=== PATIENT | female | born 2000 | race Caucasian/White ===

== ENCOUNTER 2022-09-21 16:53 | Emergency (ER) | payer OTHER, SELFPAY ==
[2022-09-21] VITALS (33 sets, daily range): BP systolic 115–138; BP diastolic 75–88; PULSE 71–99; RESP 11–28; TEMP 36.6; O2SAT 99–100
--- NOTE | ~2022-09-21 | CT_ITS ---
EXAMINATION: CT brain wo con DATE: 09/21/2022 18:48 INDICATION: seizure . TECHNIQUE: Computed tomography (CT) of the head was performed without intravenous contrast. The mA wa s adjusted according to patient size. Iterative reconstruction technique was employed. The dose-lengt h product was 605.33 mGy-cm. COMPARISON: None. FINDINGS: No acute intracranial hemorrhage or extra-axial fluid collection. No hydrocephalus, mass, or herniation. No acute ischemic infarct. Unremarkable dural venous sinus attenuation. No acute osseous abnormality. Left maxillary retention cyst or polyp, the remaining aerated spaces are clear. IMPRESSION: No acute intracranial process. Reviewed, dictated and finalized at location K. DENT REPORT CLERK
--- NOTE | 2022-09-21 17:50 | PC.NURSE ---
pt up to desk asking for iv to be removed. states she needs to get back on campus before shuttle stops. pt ambulatory into triage room and iv removed. care coordination contacted for bus schedule
--- NOTE | 2022-09-21 18:36 | ED.GENADULT ---
HPI - General Adult General Chief complaint: Seizure Stated complaint: pseudoseisures Time Seen by Provider: 09/21/22 18:29 History of Present Illness HPI narrative: Patient is a 22-year-old female with a history of anxiety, depression, diagnosed with pseudoseizures, here for evaluation of seizure-like activity. Patient states that over the past week she has had several episodes consistent with prior pseudoseizures. Today, she states that she had 6 episodes of uncontrollable body shaking where she loses consciousness, lasting for several seconds before resolving without intervention. She did hit her head on the tile floor. She has seen a neurologist in [place] for this, takes Lamictal daily, and was told that she no longer had to follow-up with neurology because it is a psychiatric issue. She has seen her psychiatrist numerous times and has underwent numerous medication adjustments without success or resolution of these episodes. she denies headaches, visual changes, fevers or chills. Denies increased stressors, suicidal ideation or homicidal ideation. Denies illicit drug use. Related Data Allergies Allergy/AdvReac Type Severity Reaction Status Date / Time diphenhydramine Allergy Other Verified 09/21/22 19:50 [From Benadryl] ibuprofen Allergy Vomiting Verified 09/21/22 19:50 Review of Systems Review of Systems: Gen: Denies fevers or chills Eyes: Denies eye pain or visual change ENT: Denies congestion Respiratory: Denies shortness of breath or cough CV: Denies chest pain or palpitations GI: Denies abdominal pain nausea, emesis or diarrhea : denies burning, urgency, frequency or hematuria Musculoskeletal: Denies back pain or muscle pain Neuro: Reports pseudoseizures Skin: Denies rash Except as documented, all other systems reviewed and negative Exam Narrative: APPEARANCE: Well appearing, no pain in distress, well-nourished. Head: Normocephalic and atraumatic. EYES: PERRLA/EOMI, conjunctivae clear NOSE: No nasal drainage EARS: External ear normal in appearance THROAT: Oropharynx is clear. Mucous membranes are moist. NECK: Supple. No adenopathy, no masses. RESPIRATORY: Airway patent, respirations nonlabored. Clear to auscultation bilaterally, no rales, rhonchi, wheezing. CARDIOVASCULAR: Regular rate and rhythm without murmurs, rubs, or gallops. ABDOMINAL: Normoactive bowel sounds. Soft, nontender, nondistended. No rebound tenderness or guarding. MUSCULOSKELETAL: Extremities are warm and well-perfused. Moves all extremities well. No edema. NEURO: Normal speech. No focal neurologic deficits. SKIN: Skin is warm and dry. No rashes. PSYCHIATRIC: Normal affect/mood. Course Vital Signs Vital signs: Vital Signs Temperature 97.9 F 09/21/22 17:00 Pulse Rate 90 09/21/22 17:00 Respiratory Rate 16 09/21/22 17:00 Blood Pressure 127/78 09/21/22 17:00 Pulse Oximetry 99 09/21/22 17:00 Oxygen Delivery Room Air 09/21/22 17:00 Temperature 97.9 F 09/21/22 17:00 Pulse Rate 91 09/22/22 00:48 Respiratory Rate 17 09/22/22 00:48 Blood Pressure 125/90 09/22/22 00:30 Pulse Oximetry 97 09/22/22 00:33 Oxygen Delivery Room Air 09/21/22 17:00 Medical Decision Making MDM Narrative Medical decision making narrative: 22-year-old female with a history of pseudoseizures here for evaluation of seizure-like activity today that she likens to previous episodes of pseudoseizures. She has been compliant with her Lamictal but has not seen her neurologist in a year. She has had EEGs, MRIs, numerous tests that have been unrevealing. Vital signs are normal, she did hit her head but has no significant signs of head trauma/tongue laceration on exam. Head CT is normal. Lactic is negative. She does have numerous electrolyte disturbances including hypokalemia, hypocalcemia, hypoalbuminemia. EKG with T wave flattening. She denies GI losses and has had normal p.o. intake. her lytes were repleted in the ED and verito kidd
[2022-09-21 19:19] LABS: Hematocrit 38.1 % (37.0-47.0); Immature Granulocyte Absolute 0.02 K/mm3 (0.00-0.031); Immature Granulocyte Percent A 0.4 % (0-0.5); Lymphocytes Absolute Auto 1.65 K/mm3 (0.9-3.2); Lymphocytes Percent Auto 36.7 % (18.3-44.2); Mean Corpuscular HGB Conc 34.1 g/dl (32-36); Mean Corpuscular Hemoglobin 31.6 pg (26-34); Mean Corpuscular Volume 92.7 fl (80-100); Mean Platelet Volume 9.1 fl (7.4-10.4); Monocytes Absolute Auto 0.3 K/mm3 (0.1-0.6); Monocytes Percent Auto 6.2 % (2.6-8.5); Neutrophils Absolute Auto 2.6 K/mm3 (1.3-6.7); Neutrophils Percent Auto 56.7 % (45.5-73.1); Platelet Count Result 234 k/mm3 (150-375); Red Blood Count 4.11 M/mm3 (4.2-5.4); Red Cell Distribution Width 12.3 % (11.5-14.5); White Blood Count 4.5 K/mm3 (4.5-10.0)
[2022-09-21 19:35] LABS: Alanine Aminotransferase 17 U/L (6-35); Albumin Level 2.6 g/dL (3.5-5.1); Alkaline Phosphatase 60 U/L (38-126); Anion Gap 1 mmol/L (8-16); Aspartate Amino Transferase 17 U/L (14-36); Bilirubin,Total 0.4 mg/dL (0.2-1.3); Blood Urea Nitrogen 4 mg/dL (7-17); Calcium 5.9 mg/dL (8.4-10.2); Carbon Dioxide 22 mmol/L (22-30); Chloride 115 mmol/L (98-107); Estimated CRCL calculation 149 ml/min; Estimated Glomerular Filt Rate > 60; Glucose 67 mg/dL (65-110); Magnesium 1.5 mg/dL (1.6-2.3); Potassium 2.4 mmol/L (3.4-5.0); Sodium 138 mmol/L (137-145)
--- NOTE | 2022-09-21 19:38 | ECG_ITS ---
Measurements Intervals [place] Rate: 78 P: 47 SD: 194 QRS: 8 QRSD: 117 T: 33 QT: 394 QTc: 451 Interpretive Statements SINUS RHYTHM INTRAVENTRICULAR CONDUCTION DELAY DELAYED PRECORDIAL R/S TRANSITION BORDERLINE T WAVE ABNORMALITY- ANTERIOR LEADS BASELINE ARTIFACT- I, II, AVR, AVL, AVF, V3-V4 BORDERLINE ECG NO PREVIOUS ECG AVAILABLE FOR COMPARISON Electronically Signed On 09-22-2022 7:46:13 JOY LOADER by Don Leo D.O.
[2022-09-21] MEDS: Please add drug allergy info to patient profile. 1 EACH XX (19:51)
[2022-09-21] MEDS: POTASSIUM CHLORIDE 20 MEQ TABLET 40 MEQ PO (19:51)
[2022-09-21] MEDS: POTASSIUM CHLORIDE INJ 40 MEQ in SODIUM CHLORIDE 0.9% IV 500 ML 130 MEQ IVPB (20:09)
[2022-09-21] MEDS: SODIUM CHLORIDE 0.9% IV 1,000 ML 999 ML IV CONT (20:09)
[2022-09-21 20:20] LABS: Lithium 0.3 mmol/L (0.6-1.2)
[2022-09-21 20:40] LABS: Phosphorus 3.8 mg/dL (2.5-4.5)
[2022-09-21] MEDS: CALCIUM CARBONATE (TUMS) 500 MG (200 MG ELEMENTAL) 400 MG PO (22:15)
[2022-09-22 00:03] VITALS: PULSE 84; RESP 20; O2SAT 100
[2022-09-22 00:20] VITALS: PULSE 80; RESP 17; O2SAT 98
[2022-09-22 00:30] VITALS: BP 125/90; PULSE 82; RESP 18; O2SAT 98
[2022-09-22 00:33] VITALS: PULSE 84; RESP 17; O2SAT 97
[2022-09-22 00:42] LABS: Anion Gap 2 mmol/L (8-16); Blood Urea Nitrogen 8 mg/dL (7-17); Calcium 8.5 mg/dL (8.4-10.2); Carbon Dioxide 29 mmol/L (22-30); Chloride 111 mmol/L (98-107); Estimated CRCL calculation 110 ml/min; Estimated Glomerular Filt Rate > 60; Glucose 97 mg/dL (65-110); Potassium 4.1 mmol/L (3.4-5.0); Sodium 142 mmol/L (137-145)
[2022-09-22 00:48] VITALS: PULSE 91; RESP 17
[2022-09-29 16:49] LABS: Parathyroid Hormone Related Pr 10 pg/mL (11-20)
== END 2022-09-22 01:08 | disposition home or self-care (01) ==
PROVIDERS: Emergency Provider Physician Assistant
DX: R56.9 Unspecified convulsions (principal); I45.9 Conduction disorder, unspecified; R94.31 Abnormal electrocardiogram [ECG] [EKG]
CPT/HCPCS: 36415; 70450; 80048; 80053; 80178; 83519; 83605; 83735; 84100; 85025; 93005; 96365; 96366; 99284; A9270; J3480; J7030; J7040

== ENCOUNTER 2022-11-17 14:11 | Emergency (ER) | payer MEDICAID, SELFPAY ==
[2022-11-17 14:16] VITALS: BP 136/69; PULSE 89; RESP 20; TEMP 36.7; O2SAT 98
[2022-11-17 14:57] LABS: Basophils Percent Auto 0.2 % (0.2-1.2); Eosinophils Absolute Auto 0.1 K/mm3 (0-0.3); Hematocrit 42.3 % (37.0-47.0); Hemoglobin 14.5 g/dL (12.0-15.0); Immature Granulocyte Absolute 0.01 K/mm3 (0.00-0.031); Immature Granulocyte Percent A 0.2 % (0-0.5); Lymphocytes Percent Auto 35.5 % (18.3-44.2); Mean Corpuscular HGB Conc 34.3 g/dl (32-36); Mean Corpuscular Hemoglobin 30.9 pg (26-34); Mean Corpuscular Volume 90.2 fl (80-100); Mean Platelet Volume 9.6 fl (7.4-10.4); Monocytes Absolute Auto 0.3 K/mm3 (0.1-0.6); Monocytes Percent Auto 6.3 % (2.6-8.5); Neutrophils Absolute Auto 2.9 K/mm3 (1.3-6.7); Neutrophils Percent Auto 56.8 % (45.5-73.1); Platelet Count Result 278 k/mm3 (150-375); Red Blood Count 4.69 M/mm3 (4.2-5.4); Red Cell Distribution Width 12.3 % (11.5-14.5); White Blood Count 5.1 K/mm3 (4.5-10.0)
--- NOTE | 2022-11-17 14:57 | PC.NURSE ---
Pt states she was not going to wait any longer.
[2022-11-17 15:11] LABS: Alanine Aminotransferase 25 U/L (6-35); Albumin Level 4.6 g/dL (3.5-5.1); Alkaline Phosphatase 78 U/L (38-126); Anion Gap 5 mmol/L (8-16); Aspartate Amino Transferase 29 U/L (14-36); Bilirubin,Total 0.7 mg/dL (0.2-1.3); Blood Urea Nitrogen 10 mg/dL (7-17); Carbon Dioxide 31 mmol/L (22-30); Chloride 106 mmol/L (98-107); Estimated CRCL calculation 112 ml/min; Estimated Glomerular Filt Rate > 60; Glucose 91 mg/dL (65-110); Lipase 34 U/L (23-300); Potassium 4.8 mmol/L (3.4-5.0); Sodium 142 mmol/L (137-145)
== END 2022-11-17 15:00 | disposition left against medical advice (07) ==
PROVIDERS: Emergency Provider Emergency Medicine
DX: R11.2 Nausea with vomiting, unspecified (principal); R19.7 Diarrhea, unspecified
CPT/HCPCS: 36415; 80053; 83690; 85025; 99199

== ENCOUNTER 2023-01-08 13:30 | Emergency (ER) | payer OTHER, SELFPAY ==
[2023-01-08] VITALS (19 sets, daily range): BP systolic 112–141; BP diastolic 70–89; PULSE 67–92; RESP 12–20; TEMP 36.8; O2SAT 96–100
--- NOTE | ~2023-01-08 | CT_ITS ---
EXAMINATION: CT brain wo con DATE: 01/08/2023 14:49 INDICATION: Seizure. TECHNIQUE: Computed tomography (CT) of the head was performed without intravenous contrast. The mA wa s adjusted according to patient size. Iterative reconstruction technique was employed. The dose-lengt h product was 605.33 mGy-cm. COMPARISON: Head CT 09/21/2022 FINDINGS: There is no intracranial hemorrhage, acute infarction, or abnormal intracranial mass lesion . The ventricles are normal in size. There is mild mucosal thickening in left maxillary sinus. The ma stoid air cells are normal. The orbits are normal. IMPRESSION: 1. Normal brain. Reviewed, dictated and finalized at location E. IMPRESSION: 1. Normal brain.
--- NOTE | ~2023-01-08 | XR_ITS ---
EXAMINATION: XR chest 1V 01/08/2023 14:54 INDICATION: Syncope. History of seizure. PROCEDURE: AP view of the chest COMPARISON: No prior studies for comparison. FINDINGS: The lungs are clear. The cardiomediastinal silhouette is within normal limits. There are no pleural effusions. There is no pneumothorax suspected. IMPRESSION: 1: NO ACUTE CARDIOPULMONARY DISEASE. Reviewed, dictated and finalized at location B.
--- NOTE | 2023-01-08 14:14 | ECG_ITS ---
Measurements Intervals [place] Rate: 77 P: 43 GA: 196 QRS: -10 QRSD: 120 T: 8 QT: 390 QTc: 442 Interpretive Statements SINUS RHYTHM INTRAVENTRICULAR CONDUCTION DELAY BORDERLINE T WAVE ABNORMALITY- ANT/INF LEADS BORDERLINE ECG COMPARED TO ECG 12/23/2022 12:27:44 INTRAVENTRICULAR CONDUCTION DELAY NOW PRESENT Electronically Signed On 01-08-2023 15:26:02 CDT by Don Leo D.O.
[2023-01-08] MEDS: SODIUM CHLORIDE 0.9% IV 1,000 ML 999 ML IV CONT (14:30)
[2023-01-08 14:54] LABS: Appearance Urine Cloudy (Clear); Bacteria Urine 1+ /hpf; Bilirubin Urine Negative (Negative); Blood Urine Negative (Negative); Color Urine Yellow (Yellow); Glucose Urine UA Negative (Negative); Ketones Urine Negative (Negative); Leukocyte Esterase Ur Trace LEU/UL (Negative); Nitrate Urine Negative (Negative); Protein Urine Negative (Negative); RBC Urine 0-2 /hpf (0-2); Squamous Epithelial Cell Urine Few /hpf (Few); Urobilinogen Urine 0.2 mg/dL (<2.0); WBC Urine 0-5 /hpf
[2023-01-08 14:56] LABS: Add Urine Microscopic? YES
[2023-01-08 15:08] LABS: Amphetamine Screen Urine Negative (Negative); Barbiturate Screen Urine Negative (Negative); Benzodiazepines Screen Urine Negative (Negative); Cannabinoid Screen Urine Negative (Negative); Cocaine Screen Urine Negative (Negative); Methadone Screen Urine Negative (Negative); Opiate Screen Urine Negative (Negative); Phencyclidine Screen Urine Negative (Negative)
--- NOTE | 2023-01-08 15:09 | ED.SEIZURE ---
HPI - Seizure General Chief Complaint: Seizure Stated Complaint: seizure Time Seen by Provider: 01/08/23 13:54 Source: patient, RN notes reviewed and old records reviewed Mode of arrival: ambulatory Limitations: no limitations History of Present Illness HPI Narrative: This is a 22 year old female with history of Bipolar disorder and psuedoseizure who presents for evaluation of seizure activity. Patient states she was at work and she had seizure like activity. She denies tongue biting or urinary incontinence. She has history of similar episodes and she has been diagnosed as pseudoseizure as the cause of the these episodes. She reports feeling dizziness and heart pounding prior to her episodes. Patient reports having EEG 2 years ago and it was negative. She has need seen a neurologist in 1 year because she was not have epileptic seizures. She states her PCP ordered MRI brain 2 weeks ago and it showed brain injury . She has been referred to neurologist and her appointment is on Wednesday. she denies headache, nausea, vomiting or focal weakness. She states she stopped taking her lithium, lamictal and seroquel 2 months ago without her doctor's knowledge. Seizure History: Yes Related Data Allergies Allergy/AdvReac Type Severity Reaction Status Date / Time diphenhydramine Allergy Other Verified 12/23/22 12:22 [From Benadryl] ibuprofen Allergy Vomiting Verified 12/23/22 12:22 Review of Systems Constitutional: Constitutional: Denies weakness Cardiovascular: Cardiovascular: Denies syncope, Reports rapid heart rate, Denies irregular heart rhythm, Denies leg edema and Denies dyspnea Respiratory: Respiratory: Denies chest congestion, Denies hemoptysis, Denies excessive phlegm production and Denies dyspnea Gastrointestinal: Gastrointestinal: Denies abdominal pain, Denies hematochezia, Denies diarrhea and Denies vomiting Genitourinary: Genitourinary: Denies hematuria and Denies dysuria Musculoskeletal: Musculoskeletal: Denies joint swelling, Denies loss of height and Denies muscle weakness Neurologic: Reports dizziness, Denies syncope, Denies headache(s), Denies focal weakness and Denies weakness PMFSH Past Medical History Medical History (Updated 01/08/23 @ 16:59 by Ligia Narayan MD) Psychiatric pseudoseizure Surgical History Surgical History (Updated 12/23/22 @ 12:56 by Roxy Santiago MD) No pertinent past surgical history Social History Social History (Updated 12/23/22 @ 12:57 by Roxy Santiago MD) Smoking status: Never smoker Alcohol intake: never Substance use: never Living arrangements: dorm student housing Occupation/Education: student Gender identity (if verbalized by the patient): Female Exam Narrative: GENERAL: Well-appearing, well-nourished, and in no acute distress. HEAD: Normocephalic, atraumatic EYES: PERRLA and EOMI, conjunctiva clear without discharge EARS: TM's clear bilaterally without erythema or dullness NOSE: Nares clear, no rhinorrhea or epistaxis THROAT:Mucous membranes moist, Oropharynx normal without erythema, exudate, peritonsillar swelling or fluctuance NECK: Supple, without lymphadenopathy or mass RESPIRATORY: No respiratory distress, Airway patent, Respirations non-labored, Clear to auscultation without rales, rhonchi or wheeze HEART: Regular rate and rhythm. No murmur heard. Normal peripheral pulses. ABDOMEN: Soft, nontender, nondistended, normal active bowel sounds. No masses. No rebound or guarding, No organomegaly. EXTREMITIES: No edema, normal strength with full range of motion. SKIN: Warm, dry, normal color without rash NEURO: Alert and oriented x3. CN 2-12 grossly intact. No focal deficits. PSYCH: Normal mood and affect. Course Reevaluation(s) Reevaluation #1: Patient has unremarkable evaluation. SHe has been ambulatory without dizziness. No report of incontinence, tongue biting or postictal state to suggest epileptic seizure. She has
[2023-01-08 15:43] LABS: Alanine Aminotransferase 21 U/L (6-35); Albumin Level 4.2 g/dL (3.5-5.1); Alkaline Phosphatase 100 U/L (38-126); Anion Gap 6 mmol/L (8-16); Aspartate Amino Transferase 25 U/L (14-36); Bilirubin,Total 0.9 mg/dL (0.2-1.3); Blood Urea Nitrogen 13 mg/dL (7-17); Calcium 8.9 mg/dL (8.4-10.2); Carbon Dioxide 28 mmol/L (22-30); Chloride 104 mmol/L (98-107); Estimated CRCL calculation 87 ml/min; Estimated Glomerular Filt Rate > 60; Glucose 80 mg/dL (65-110); Potassium 3.9 mmol/L (3.4-5.0); Sodium 138 mmol/L (137-145)
[2023-01-08 15:54] LABS: Troponin I < 0.012 ng/mL (0.000-0.034)
[2023-01-08 16:07] LABS: Eosinophils Percent Auto 0.6 % (0-4.4); Hematocrit 36.5 % (37.0-47.0); Hemoglobin 12.8 g/dL (12.0-15.0); Immature Granulocyte Absolute 0.01 K/mm3 (0.00-0.031); Immature Granulocyte Percent A 0.2 % (0-0.5); Lymphocytes Absolute Auto 1.63 K/mm3 (0.9-3.2); Lymphocytes Percent Auto 30.7 % (18.3-44.2); Mean Corpuscular HGB Conc 35.1 g/dl (32-36); Mean Corpuscular Hemoglobin 30.5 pg (26-34); Mean Corpuscular Volume 87.1 fl (80-100); Mean Platelet Volume 9.5 fl (7.4-10.4); Monocytes Absolute Auto 0.4 K/mm3 (0.1-0.6); Neutrophils Absolute Auto 3.3 K/mm3 (1.3-6.7); Neutrophils Percent Auto 61.5 % (45.5-73.1); Platelet Count Result 224 k/mm3 (150-375); Red Blood Count 4.19 M/mm3 (4.2-5.4); White Blood Count 5.3 K/mm3 (4.5-10.0)
== END 2023-01-08 17:09 | disposition home or self-care (01) ==
PROVIDERS: Emergency Provider General Practice
DX: R56.9 Unspecified convulsions (principal); F31.9 Bipolar disorder, unspecified; T42.6X6A Underdosing of other antiepileptic and sedative-hypnotic drugs, initial encounter; T43.596A Underdosing of other antipsychotics and neuroleptics, initial encounter; Z91.138 Patient's unintentional underdosing of medication regimen for other reason; R94.31 Abnormal electrocardiogram [ECG] [EKG]; I45.9 Conduction disorder, unspecified
CPT/HCPCS: 36415; 70450; 71045; 80053; 80307; 81001; 81025; 83735; 84484; 85025; 93005; 96360; 99284; J7030

== ENCOUNTER 2023-02-20 13:35 | Emergency (ER) | payer OTHER, SELFPAY ==
[2023-02-20] VITALS (20 sets, daily range): BP systolic 115–148; BP diastolic 72–86; PULSE 75–98; RESP 14–22; TEMP 36.7; O2SAT 97–100
--- NOTE | 2023-02-20 14:15 | ED.SEIZURE ---
HPI - Seizure General Chief Complaint: Seizure Stated Complaint: SEIZURES Time Seen by Provider: 02/20/23 13:49 History of Present Illness HPI Narrative: 23-year-old female presents to the emergency room today by EMS after having seizure activity while at work. She says that she had a feeling of blurry vision and dizziness prior to the seizure. She does not recall the seizure itself. She says that she had 2 seizures [id number]. Her employer called EMS at that point. She has seen a neurologist in the past but not for more than a year. She is diagnosed with pseudoseizures. Her psychiatrist stopped her seizure medication in October because she has pseudoseizures rather than epileptic seizures. They are trying to do a medication wash for her right now. Patient is starting to feel more back to her baseline but says she feels tired. No headache or dizziness right now. Denies any pain symptoms. No recent illness, fever or chills. Seizure History: Yes Related Data Allergies Allergy/AdvReac Type Severity Reaction Status Date / Time diphenhydramine Allergy Other Verified 02/20/23 13:48 [From Benadryl] ibuprofen Allergy Vomiting Verified 02/20/23 13:48 Review of Systems Review of Systems: CONSTITUTIONAL: Denies fever, chills, or sweats. EYES: as per HPI ENT: Denies rhinorrhea, congestion, sore throat, or otalgia. CARDIOVASCULAR: Denies chest pain, palpitations, or edema. RESPIRATORY: Denies cough or dyspnea. GASTROINTESTINAL: Denies abdominal pain, nausea, vomiting, or diarrhea. GENITOURINARY: Denies dysuria or hematuria. SKIN: Denies rash or itching. MUSCULOSKELETAL: Denies back pain, joint pain, or myalgia. NEUROLOGIC: as per HPI PSYCHIATRIC: Denies anxiety or depression. [facility] Past Medical History Medical History Psychiatric pseudoseizure Surgical History Surgical History No pertinent past surgical history Social History Social History Smoking status: Never smoker Alcohol intake: never Substance use: never Living arrangements: dorm student housing Occupation/Education: student Gender identity (if verbalized by the patient): Female Exam Narrative: GENERAL: Well-appearing, well-nourished, and in no acute distress. HEAD: Normocephalic, atraumatic. EYES: PERRL and EOMI. NECK: Supple. No adenopathy or masses. CHEST: Clear to auscultation. No respiratory distress. No wheezes rales or rhonchi HEART: Regular rate and rhythm. No murmur heard. Normal peripheral pulses. ABDOMEN: Soft, nontender, nondistended, normal active bowel sounds. EXTREMITIES: Normal range of motion. No edema. SKIN: Warm, dry, no rash. NEURO: No focal deficits. Alert and oriented x3. PSYCH: Normal mood and affect. Course Vital Signs Vital signs: Vital Signs Temperature 36.7 C 02/20/23 13:32 Pulse Rate 98 02/20/23 13:32 Respiratory Rate 17 02/20/23 13:32 Blood Pressure 132/80 02/20/23 13:32 Pulse Oximetry 99 02/20/23 13:32 Oxygen Delivery Room Air 02/20/23 13:32 Temperature 36.7 C 02/20/23 13:32 Pulse Rate 84 02/20/23 16:16 Respiratory Rate 17 02/20/23 16:16 Blood Pressure 125/78 02/20/23 16:16 Pulse Oximetry 98 02/20/23 16:16 Oxygen Delivery Room Air 02/20/23 13:45 MDM - Seizure Lab Data Attestation: I reviewed the patient's lab results. 02/20/23 14:28 02/20/23 15:57 Labs: Lab Results 02/20/23 02/20/23 02/20/23 Range/Units 14:28 14:40 15:57 WBC 5.5 (4.5-10.0) K/mm3 RBC 4.22 (4.2-5.4) M/mm3 Hgb 13.0 (12.0-15.0) g/dL Hct 37.3 (37.0-47.0) % MCV 88.4 (80-100) fl MCH 30.8 (26-34) pg MCHC 34.9 (32-36) g/dl RDW 12.8 (11.5-14.5) % Plt Count 238 (150-375) k/mm3 MPV 10.0 (7.4-10.4) fl Immature Gran % (
[2023-02-20] MEDS: SODIUM CHLORIDE 0.9% IV 1,000 ML 999 ML IV CONT (14:29)
[2023-02-20 14:35] LABS: Basophils Percent Auto 0.2 % (0.2-1.2); Eosinophils Absolute Auto 0.1 K/mm3 (0-0.3); Eosinophils Percent Auto 1.3 % (0-4.4); Hematocrit 37.3 % (37.0-47.0); Immature Granulocyte Absolute 0.01 K/mm3 (0.00-0.031); Immature Granulocyte Percent A 0.2 % (0-0.5); Lymphocytes Percent Auto 32.5 % (18.3-44.2); Mean Corpuscular HGB Conc 34.9 g/dl (32-36); Mean Corpuscular Hemoglobin 30.8 pg (26-34); Mean Corpuscular Volume 88.4 fl (80-100); Monocytes Absolute Auto 0.4 K/mm3 (0.1-0.6); Monocytes Percent Auto 6.7 % (2.6-8.5); Neutrophils Absolute Auto 3.3 K/mm3 (1.3-6.7); Neutrophils Percent Auto 59.1 % (45.5-73.1); Platelet Count Result 238 k/mm3 (150-375); Red Blood Count 4.22 M/mm3 (4.2-5.4); Red Cell Distribution Width 12.8 % (11.5-14.5); White Blood Count 5.5 K/mm3 (4.5-10.0)
[2023-02-20 14:48] LABS: Appearance Urine Clear (Clear); Bacteria Urine None Seen /hpf; Bilirubin Urine Negative (Negative); Color Urine Yellow (Yellow); Glucose Urine UA Negative (Negative); Ketones Urine Negative (Negative); Leukocyte Esterase Ur Trace LEU/UL (Negative); Nitrate Urine Negative (Negative); Non Pathogenic Casts 0-2; Protein Urine Negative (Negative); RBC Urine 0-2 /hpf (0-2); Specific Grav Ur 1.009 (1.001-1.035); Squamous Epithelial Cell Urine None seen /hpf (Few); Urobilinogen Urine 0.2 mg/dL (<2.0); WBC Urine 0-5 /hpf; pH Urine 5.5 (5.0-9.0)
[2023-02-20 15:12] LABS: Add Urine Microscopic? YES
[2023-02-20 16:14] LABS: Alanine Aminotransferase 18 U/L (6-35); Albumin Level 3.8 g/dL (3.5-5.1); Alkaline Phosphatase 99 U/L (38-126); Anion Gap 5 mmol/L (8-16); Aspartate Amino Transferase 23 U/L (14-36); Bilirubin,Total 0.4 mg/dL (0.2-1.3); Blood Urea Nitrogen 13 mg/dL (7-17); Calcium 8.1 mg/dL (8.4-10.2); Carbon Dioxide 24 mmol/L (22-30); Chloride 111 mmol/L (98-107); Estimated CRCL calculation 106 ml/min; Estimated Glomerular Filt Rate > 60; Glucose 89 mg/dL (65-110); Potassium 3.5 mmol/L (3.4-5.0); Sodium 140 mmol/L (137-145)
== END 2023-02-20 16:44 | disposition home or self-care (01) ==
PROVIDERS: Nurse Practitioner Family; Emergency Provider Emergency Medicine
DX: R56.9 Unspecified convulsions (principal)
CPT/HCPCS: 36415; 80053; 81001; 81025; 85025; 96360; 99283; J7030

== ENCOUNTER 2023-02-23 17:58 | Emergency (ER) | payer OTHER, SELFPAY ==
[2023-02-23 18:08] VITALS: BP 132/83; PULSE 91; RESP 25; TEMP 37.1; O2SAT 98
--- NOTE | 2023-02-23 19:06 | ECG_ITS ---
Measurements Intervals [place] Rate: 82 P: 28 HI: 166 QRS: -13 QRSD: 105 T: 11 QT: 363 QTc: 426 Interpretive Statements SINUS RHYTHM LOW QRS VOLTAGE IN PRECORDIAL LEADS [QRS DEFLECTION < 1.0 mV IN CHEST LEADS] NONSPECIFIC T-WAVE ABNORMALITY ABNORMAL ECG Electronically Signed On 02-24-2023 11:53:48 CDT by Ramin Brito M.D.
[2023-02-23 19:07] VITALS: BP 125/82; PULSE 85; RESP 20; O2SAT 100
[2023-02-23 19:36] LABS: Basophils Percent Auto 0.1 % (0.2-1.2); Eosinophils Absolute Auto 0.1 K/mm3 (0-0.3); Hematocrit 40.1 % (37.0-47.0); Immature Granulocyte Absolute 0.02 K/mm3 (0.00-0.031); Immature Granulocyte Percent A 0.3 % (0-0.5); Lymphocytes Absolute Auto 1.99 K/mm3 (0.9-3.2); Lymphocytes Percent Auto 27.6 % (18.3-44.2); Mean Corpuscular HGB Conc 34.9 g/dl (32-36); Mean Corpuscular Hemoglobin 30.8 pg (26-34); Mean Corpuscular Volume 88.3 fl (80-100); Mean Platelet Volume 10.6 fl (7.4-10.4); Monocytes Absolute Auto 0.4 K/mm3 (0.1-0.6); Neutrophils Absolute Auto 4.7 K/mm3 (1.3-6.7); Platelet Count Result 268 k/mm3 (150-375); Red Blood Count 4.54 M/mm3 (4.2-5.4); Red Cell Distribution Width 12.7 % (11.5-14.5); White Blood Count 7.2 K/mm3 (4.5-10.0)
[2023-02-23 19:46] LABS: Anion Gap 7 mmol/L (8-16); Blood Urea Nitrogen 16 mg/dL (7-17); Calcium 9.5 mg/dL (8.4-10.2); Carbon Dioxide 28 mmol/L (22-30); Chloride 103 mmol/L (98-107); Estimated CRCL calculation 93 ml/min; Estimated Glomerular Filt Rate > 60; Glucose 93 mg/dL (65-110); Potassium 3.9 mmol/L (3.4-5.0); Sodium 138 mmol/L (137-145)
[2023-02-23 20:07] VITALS: BP 119/84; PULSE 89; RESP 22; O2SAT 98
--- NOTE | 2023-02-23 20:07 | ED.SEIZURE ---
HPI - Seizure General Chief Complaint: Seizure Stated Complaint: seizure Time Seen by Provider: 02/23/23 19:05 History of Present Illness HPI Narrative: Patient with history of psychogenic nonepileptic seizures presenting after having seizure-like activity at work, she is unsure what the cause might have been other than she states that her blood sugar was around 70, she is feeling well now and has no symptoms. She missed her last appointment with a neurologist but is trying to set one up soon. Seizure History: Yes Related Data Allergies Allergy/AdvReac Type Severity Reaction Status Date / Time diphenhydramine Allergy Other Verified 02/20/23 13:48 [From Benadryl] ibuprofen Allergy Vomiting Verified 02/20/23 13:48 Review of Systems Review of Systems: CONST: No fever. HEENT: No sore throat C/V: No chest pain RESP: No cough GI: No abdominal pain : No dysuria. M/S: No joint pain. SKIN: No rash. NEURO: [No headache or focal numbness or weakness]; did have seizure-like activity PSYCH: [No depression] [facility] Past Medical History Medical History Psychiatric pseudoseizure Surgical History Surgical History No pertinent past surgical history Social History Social History Smoking status: Never smoker Alcohol intake: never Substance use: never Living arrangements: dorm student housing Occupation/Education: student Gender identity (if verbalized by the patient): Female Exam Narrative: EXAMINATION OF ORGAN SYSTEMS/BODY AREAS: Constitutional: Vital signs per nursing GENERAL:[No acute distress, non-toxic appearing.] HEAD: Normal with no signs of head trauma. EYES: EOMI, conjunctiva normal ENT: Hearing grossly intact LUNGS: Nonlabored breathing. HEART: [Regular rate and rhythm] ABD: [Soft], [nontender to palpation] EXT: Normal range of motion SKIN: [No rashes or lesions.] NEURO: [Alert and oriented x 3. 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 Overall she is well appearing here, resting comfortably, with no neurologic deficits or symptoms at this time. I did obtain basic labs and an EKG here to rule out possible syncope or other causes of her symptoms, EKG - 12-Lead: Performed at 1923. Interpreted by me. [Sinus rhythm]. Rate 82. Normal axis. [place]-interval [normal]. QRS duration [normal]. QTc [normal]. [No ST segment elevation or depression]. [T-wave normal]. Impression: No EKG evidence of acute ischemia or dysrhythmia. Labs within acceptable limits. I do feel patient stable for discharge with follow-up to neurology. Patient agreeable with this plan. Lab Data 02/23/23 19:26 02/23/23 19:26 Labs: Lab Results 02/23/23 Range/Units 19:26 WBC 7.2 (4.5-10.0) K/mm3 RBC 4.54 (4.2-5.4) M/mm3 Hgb 14.0 (12.0-15.0) g/dL Hct 40.1 (37.0-47.0) % MCV 88.3 (80-100) fl MCH 30.8 (26-34) pg MCHC 34.9 (32-36) g/dl RDW 12.7 (11.5-14.5) % Plt Count 268 (150-375) k/mm3 MPV 10.6 H (7.4-10.4) fl Immature Gran % (Auto) 0.3 (
== END 2023-02-23 20:31 | disposition home or self-care (01) ==
PROVIDERS: Emergency Provider Emergency Medicine
DX: R56.9 Unspecified convulsions (principal)
CPT/HCPCS: 36415; 80048; 85025; 93005; 99283

== ENCOUNTER 2023-02-28 14:20 | Emergency (ER) | payer OTHER, SELFPAY ==
[2023-02-28 14:22] VITALS: BP 142/83; PULSE 99; RESP 18; TEMP 36.7; O2SAT 98
--- NOTE | 2023-02-28 14:26 | ECG_ITS ---
Measurements Intervals [place] Rate: 101 P: 42 LA: 167 QRS: -8 QRSD: 105 T: 16 QT: 333 QTc: 432 Interpretive Statements SINUS TACHYCARDIA DELAYED PRECORDIAL R/S TRANSITION LOW QRS VOLTAGE IN PRECORDIAL LEADS BORDERLINE ECG COMPARED TO ECG 02/23/2023 19:23:32 SINUS TACHYCARDIA NOW PRESENT Electronically Signed On 02-28-2023 21:25:48 CDT by Don Leo D.O.
[2023-02-28 14:45] LABS: Basophils Percent Auto 0.2 % (0.2-1.2); Eosinophils Absolute Auto 0.1 K/mm3 (0-0.3); Eosinophils Percent Auto 1.9 % (0-4.4); Hematocrit 35.8 % (37.0-47.0); Hemoglobin 12.5 g/dL (12.0-15.0); Immature Granulocyte Absolute 0.02 K/mm3 (0.00-0.031); Immature Granulocyte Percent A 0.3 % (0-0.5); Lymphocytes Absolute Auto 1.86 K/mm3 (0.9-3.2); Lymphocytes Percent Auto 31.8 % (18.3-44.2); Mean Corpuscular HGB Conc 34.9 g/dl (32-36); Mean Corpuscular Hemoglobin 30.8 pg (26-34); Mean Corpuscular Volume 88.2 fl (80-100); Mean Platelet Volume 9.5 fl (7.4-10.4); Monocytes Absolute Auto 0.4 K/mm3 (0.1-0.6); Monocytes Percent Auto 6.3 % (2.6-8.5); Neutrophils Absolute Auto 3.5 K/mm3 (1.3-6.7); Neutrophils Percent Auto 59.5 % (45.5-73.1); Platelet Count Result 255 k/mm3 (150-375); Red Blood Count 4.06 M/mm3 (4.2-5.4); Red Cell Distribution Width 12.7 % (11.5-14.5); White Blood Count 5.8 K/mm3 (4.5-10.0)
[2023-02-28 14:57] LABS: Alanine Aminotransferase 23 U/L (6-35); Alkaline Phosphatase 92 U/L (38-126); Anion Gap 7 mmol/L (8-16); Aspartate Amino Transferase 27 U/L (14-36); Bilirubin,Total 0.3 mg/dL (0.2-1.3); Blood Urea Nitrogen 10 mg/dL (7-17); Calcium 8.7 mg/dL (8.4-10.2); Carbon Dioxide 24 mmol/L (22-30); Chloride 108 mmol/L (98-107); Estimated CRCL calculation 93 ml/min; Estimated Glomerular Filt Rate > 60; Glucose 102 mg/dL (65-110); Potassium 3.6 mmol/L (3.4-5.0); Sodium 139 mmol/L (137-145)
--- NOTE | 2023-02-28 15:24 | PC.NURSE ---
pt LWBS, stating, I am just going to take an uber home. IV removed, pt asked to return if needed. pt agreeable.
== END 2023-02-28 15:26 | disposition left against medical advice (07) ==
PROVIDERS: Emergency Provider Emergency Medicine
DX: R56.9 Unspecified convulsions (principal)
CPT/HCPCS: 36415; 80053; 85025; 93005; 99199

== ENCOUNTER 2023-03-19 15:19 | Emergency (ER) | payer OTHER, SELFPAY ==
--- NOTE | ~2023-03-19 | CT_ITS ---
EXAMINATION: CT brain wo con DATE: 03/19/2023 16:06 INDICATION: Head trauma. Seizure. Blurry vision. Headache. TECHNIQUE: Computed tomography (CT) of the head was performed without intravenous contrast. The mA wa s adjusted according to patient size. Iterative reconstruction technique was employed. Exam dose: 60 5.33 mGy-cm total exam DLP. COMPARISON: 01/08/2023 CT brain FINDINGS: There is a 2.7 mm hyperdense focus in the left lateral periventricular white matter. A slig htly smaller hyperdense focus at this site is suggested retrospectively on 01/08/2023. MR brain examin ation is recommended for further evaluation. No intracranial mass lesion or hemorrhage encephalomalacia is noted. No evidence of cerebrovascular a ccident. Normal arguello-white matter differentiation. Normal ventricular size. No midline shift or mass effect. No subdural or epidural hematoma. No fracture or bone destruction of the cranial vault. 6 mm mucus retention cyst or polyp at the posteromedial left maxillary sinus. The included paranasal sinuses and mastoid air cells are otherwise normally developed and aerated. IMPRESSION: 2.7 mm hyperdense focus in the lateral left periventricular area; MR brain examination i s recommended for correlation. 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 Reviewed, dictated and finalized at [facility]. Reviewed, dictated and finalized at [facility]. IMPRESSION: 2.7 mm hyperdense focus in the lateral left periventricular area; MR brain examination is recommended for correlation. Although there is a histor y of trauma and a small cerebral contusion might be considered, the fact that t his may retrospectively be present on 01/08/2023 would favor a chronic vascular or calcified process.
[2023-03-19 15:20] VITALS: BP 118/93; PULSE 100; RESP 18; TEMP 36.9; O2SAT 100
[2023-03-19 15:28] VITALS: PULSE 98
[2023-03-19 16:00] VITALS: BP 135/84; PULSE 88; RESP 16; O2SAT 99
[2023-03-19] MEDS: SODIUM CHLORIDE 0.9% IV 1,000 ML 999 ML IV CONT (16:15)
[2023-03-19 16:19] LABS: Basophils Percent Auto 0.2 % (0.2-1.2); Eosinophils Absolute Auto 0.1 K/mm3 (0-0.3); Eosinophils Percent Auto 1.1 % (0-4.4); Hematocrit 36.9 % (37.0-47.0); Hemoglobin 12.9 g/dL (12.0-15.0); Immature Granulocyte Absolute 0.02 K/mm3 (0.00-0.031); Immature Granulocyte Percent A 0.4 % (0-0.5); Lymphocytes Absolute Auto 1.93 K/mm3 (0.9-3.2); Mean Corpuscular Hemoglobin 30.7 pg (26-34); Mean Corpuscular Volume 87.9 fl (80-100); Mean Platelet Volume 9.4 fl (7.4-10.4); Monocytes Absolute Auto 0.3 K/mm3 (0.1-0.6); Monocytes Percent Auto 5.6 % (2.6-8.5); Neutrophils Absolute Auto 3.3 K/mm3 (1.3-6.7); Neutrophils Percent Auto 58.7 % (45.5-73.1); Platelet Count Result 224 k/mm3 (150-375); Red Cell Distribution Width 12.3 % (11.5-14.5); White Blood Count 5.7 K/mm3 (4.5-10.0)
--- NOTE | 2023-03-19 16:25 | ED.SEIZURE ---
HPI - Seizure General Chief Complaint: Seizure Stated Complaint: seizure History of Present Illness HPI Narrative: This is a 23-year-old female, with past history of epilepsy and bipolar disorder, previously on lamotrigine and lithium, who is brought in by EMS after a reported seizure at work. The patient states she was in her usual state of health, when she developed bilateral lower extremity numbness and had a seizure. The patient states she stopped her medications on her own approximately 1 year ago. She denies any recent illness. She is not sure if she hit her head she denies weakness, though complains of mild headache, similar to headaches felt before after seizures and bilateral lower extremity paresthesias. Related Data Allergies Allergy/AdvReac Type Severity Reaction Status Date / Time diphenhydramine Allergy Other Verified 03/19/23 15:29 [From Benadryl] ibuprofen Allergy Vomiting Verified 03/19/23 15:29 Review of Systems Review of Systems: CONSTITUTIONAL: Denies fever, chills, or sweats. CARDIOVASCULAR: Denies chest pain, palpitations, or edema. RESPIRATORY: Denies cough or dyspnea. GASTROINTESTINAL: Denies abdominal pain, nausea, vomiting, or diarrhea. GENITOURINARY: Denies dysuria or hematuria. SKIN: Denies rash or itching. MUSCULOSKELETAL: Denies back pain, joint pain, or myalgia. NEUROLOGIC: Paresthesias of the bilateral feet, headache denies dizziness, or weakness. PSYCHIATRIC: Denies anxiety or depression. [facility] Past Medical History Medical History Psychiatric pseudoseizure Surgical History Surgical History No pertinent past surgical history Social History Social History Smoking status: Never smoker Alcohol intake: never Substance use: never Living arrangements: dorm student housing Occupation/Education: student Gender identity (if verbalized by the patient): Female Exam Narrative: GENERAL: Well-developed, well-nourished, and in no acute distress. HEAD: Normocephalic, atraumatic. EYES: PERRLA and EOMI. ENT: No noted tongue biting. Nares clear, no rhinorrhea or epistaxis. Mucous membranes moist. Oropharynx without tonsillar hypertrophy exudate or other lesions. NECK: Supple. No adenopathy or masses. No carotid bruits or JVD. No midline spine tenderness to palpation, no step-off or crepitus CHEST: Clear to auscultation. No respiratory distress. No wheezes rales or rhonchi HEART: Tachycardic with regular rhythm. No murmur heard. Normal peripheral pulses. ABDOMEN: Soft, nontender, nondistended, normal active bowel sounds. EXTREMITIES: Normal range of motion. No edema. SKIN: Warm, dry, no rash. NEURO: No focal deficits. Alert and oriented x3. Strength, 5/5 in all extremities, sensation intact bilaterally, no noted ataxia, cranial nerves II through XII intact PSYCH: Normal mood and affect. Course Course Emergency Course: 17:12 - CT head shows a punctate hyperdensity that is unchanged compared to December 2022. On discussion with the patient, she states this is related to an old injury. Chemistries unremarkable. CBC unremarkable. test negative. The patient is neurologically intact and seen ambulating in the emergency department without difficulty. Review of prior documentation shows the patient has been seen here multiple times with diagnosis of nonepileptic seizures. Will discharge with recommendation for psychiatry and primary care follow-up. Discussed return and emergency precautions including signs/symptoms of intracranial hemorrhage, and focal neural deficit. The patient voiced understanding and is comfortable with the plan. All questions answered to her satisfaction. Vital Signs Vital signs: Vital Signs Temperature 98.5 F 03/19/23 15:20 Pulse Rate 100 03/19/23 15:20 Respirator
[2023-03-19 16:28] LABS: Lactic Acid Reflex 1.2 mmol/L (0.7-2.0)
[2023-03-19 16:29] LABS: Alanine Aminotransferase 22 U/L (6-35); Alkaline Phosphatase 86 U/L (38-126); Anion Gap 9 mmol/L (8-16); Aspartate Amino Transferase 30 U/L (14-36); Bilirubin,Total 0.3 mg/dL (0.2-1.3); Blood Urea Nitrogen 13 mg/dL (7-17); Calcium 8.9 mg/dL (8.4-10.2); Carbon Dioxide 24 mmol/L (22-30); Chloride 105 mmol/L (98-107); Estimated CRCL calculation 103 ml/min; Estimated Glomerular Filt Rate > 60; Glucose 99 mg/dL (65-110); Potassium 3.6 mmol/L (3.4-5.0); Sodium 138 mmol/L (137-145)
[2023-03-19 16:30] VITALS: BP 118/71; PULSE 86; RESP 20; O2SAT 99
[2023-03-19] MEDS: levETIRAcetam 500 MG TABLET 1000 MG PO (16:48)
== END 2023-03-19 17:23 | disposition home or self-care (01) ==
PROVIDERS: Emergency Provider Preventive Medicine Aerospace Medicine
DX: F44.5 Conversion disorder with seizures or convulsions (principal); F31.9 Bipolar disorder, unspecified
CPT/HCPCS: 36415; 70450; 80053; 81025; 83605; 83735; 85025; 96360; 99284; A9270; J7030

== ENCOUNTER 2023-03-23 11:03 | Emergency (ER) | payer OTHER, SELFPAY ==
[2023-03-23] VITALS (7 sets, daily range): BP systolic 113–123; BP diastolic 74–79; PULSE 87–95; RESP 12–20; TEMP 36.7; O2SAT 97–100
--- NOTE | 2023-03-23 13:01 | ED.GENADULT ---
HPI - General Adult General Chief complaint: Seizure Stated complaint: pseudo seizures Time Seen by Provider: 03/23/23 12:01 History of Present Illness HPI narrative: 23-year-old female presented emergency department for evaluation after having a pseudoseizure. Patient reports he does have pseudoseizures on almost a daily basis. 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 Patient reports that she is unsure how long the seizure lasted. Patient states he did have some numbness in her extremities when she had onset of the seizure but states she has been to her baseline now. Patient states she has had previous work-up by neurologist and was diagnosed with pseudo/nonepileptic seizures. Patient longer takes medications for these. Upon arrival to the ED patient is at her normal baseline and is declining any work-up at this time. Patient denies any pain or injury from the episode. Patient states she has to get to work. Patient is alert and oriented. Related Data Allergies Allergy/AdvReac Type Severity Reaction Status Date / Time diphenhydramine Allergy Other Verified 03/19/23 15:29 [From Benadryl] ibuprofen Allergy Vomiting Verified 03/19/23 15:29 Review of Systems Review of Systems: All systems reviewed & are unremarkable except as noted in HPI and below PMFSH Past Medical History Medical History Psychiatric pseudoseizure Surgical History Surgical History No pertinent past surgical history Social History Social History Smoking status: Never smoker Alcohol intake: never Substance use: never Living arrangements: dorm student housing Occupation/Education: student Gender identity (if verbalized by the patient): Female Exam Narrative: APPEARANCE: Well appearing, no pain, no distress, well-nourished. HEAD: normocephalic, atraumatic. EYES: PERRLA/EOMI, conjunctivae clear. NOSE: Normal no drainage EARS:TMS clear with good light reflex. THROAT: Pharynx clear, no exudate. NECK: Supple. No adenopathy, no masses. RESPIRATORY: Airway patent, respirations nonlabored. Clear to auscultation bilaterally, no rales, rhonchi, wheezing. CARDIOVASCULAR: Regular rate and rhythm without murmurs rubs or gallops. ABDOMINAL: Soft, nontender, nondistended, normal bowel sounds MUSCULOSKELETAL: Moves all extremities. Strength/ROM intact, No edema, No calf tenderness. NEURO: Alert. Cranial nerves II through XII intact. Grossly intact SKIN: Warm, dry. Normal Color Course Course Emergency Course: 23-year-old female presented the ED for evaluation after having a pseudoseizure. Patient states she is back to her baseline denies complaints. Patient is requesting follow-up with neurology. Patient has had previous work-up for the seizures and is seeking additional follow-up. Patient has declined any work-up today states she has to get to work. Patient is alert oriented at her baseline and is in no distress. Vital Signs Vital signs: Vital Signs Temperature 98.1 F 03/23/23 11:06 Pulse Rate 94 03/23/23 11:06 Respiratory Rate 18 03/23/23 11:06 Blood Pressure 123/79 03/23/23 11:06 Pulse Oximetry 99 03/23/23 11:06 Oxygen Delivery Room Air 03/23/23 11:06 Temperature 98.1 F 03/23/23 11:06 Pulse Rate 87 03/23/23 13:45 Respiratory Rate 20 03/23/23 13:45 Blood Pressure 113/74 03/23/23 13:45 Pulse Oximetry 100 03/23/23 13:45 Oxygen Delivery Room Air 03/23/23 11:15 Medical Decision Making Differential Diagnosis Differential Diagnosis: Pseudoseizure, seizure, anxiety Vital Signs Vital Signs: Vital Signs Temperature 98.1 F 03/23/23 11:06 Pulse Rate 94 03/23/23 11:06 Respiratory Rate 18 03/23/23 11:06 Blood Pressure 123/79 03/23/23 11:06
== END 2023-03-23 13:44 | disposition home or self-care (01) ==
PROVIDERS: Emergency Provider Emergency Medicine
DX: F44.5 Conversion disorder with seizures or convulsions (principal)
CPT/HCPCS: 99283

== ENCOUNTER 2023-04-18 20:41 | Emergency (ER) | payer OTHER, SELFPAY ==
[2023-04-18 20:42] VITALS: BP 132/92; PULSE 96; RESP 19; TEMP 36.8; O2SAT 99
[2023-04-18 20:45] VITALS: BP 132/93; PULSE 97; RESP 23; O2SAT 99
[2023-04-18 20:48] VITALS: O2SAT 99
[2023-04-18] MEDS: SODIUM CHLORIDE 0.9% IV 1,000 ML 999 ML IV CONT (21:06)
[2023-04-18 21:13] LABS: Basophils Percent Auto 0.5 % (0.2-1.2); Eosinophils Absolute Auto 0.1 K/mm3 (0-0.3); Eosinophils Percent Auto 1.5 % (0-4.4); Hematocrit 36.7 % (37.0-47.0); Hemoglobin 12.4 g/dL (12.0-15.0); Immature Granulocyte Absolute 0.01 K/mm3 (0.00-0.031); Immature Granulocyte Percent A 0.2 % (0-0.5); Lymphocytes Absolute Auto 2.24 K/mm3 (0.9-3.2); Lymphocytes Percent Auto 33.7 % (18.3-44.2); Mean Corpuscular HGB Conc 33.8 g/dl (32-36); Mean Corpuscular Volume 91.8 fl (80-100); Monocytes Absolute Auto 0.4 K/mm3 (0.1-0.6); Monocytes Percent Auto 5.6 % (2.6-8.5); Neutrophils Absolute Auto 3.9 K/mm3 (1.3-6.7); Neutrophils Percent Auto 58.5 % (45.5-73.1); Platelet Count Result 264 k/mm3 (150-375); Red Cell Distribution Width 12.1 % (11.5-14.5); White Blood Count 6.6 K/mm3 (4.5-10.0)
[2023-04-18 21:21] LABS: Lactic Acid Reflex 2.1 mmol/L (0.7-2.0)
[2023-04-18 21:23] LABS: Ethanol < 10 mg/dL (<10)
[2023-04-18 21:24] LABS: Alanine Aminotransferase 22 U/L (6-35); Albumin Level 3.7 g/dL (3.5-5.1); Alkaline Phosphatase 68 U/L (38-126); Anion Gap 4 mmol/L (8-16); Aspartate Amino Transferase 29 U/L (14-36); Bilirubin,Total 0.3 mg/dL (0.2-1.3); Blood Urea Nitrogen 14 mg/dL (7-17); Calcium 8.6 mg/dL (8.4-10.2); Carbon Dioxide 24 mmol/L (22-30); Chloride 106 mmol/L (98-107); Estimated CRCL calculation 115 ml/min; Estimated Glomerular Filt Rate > 60; Glucose 106 mg/dL (65-110); Magnesium 1.9 mg/dL (1.6-2.3); Potassium 3.4 mmol/L (3.4-5.0); Sodium 134 mmol/L (137-145)
[2023-04-18 21:45] VITALS: BP 132/74; PULSE 86; RESP 23; O2SAT 99
[2023-04-18 21:49] LABS: Appearance Urine Clear (Clear); Bacteria Urine None Seen /hpf; Bilirubin Urine Negative (Negative); Blood Urine 3+ (Negative); Color Urine Yellow (Yellow); Glucose Urine UA Negative (Negative); Ketones Urine Negative (Negative); Leukocyte Esterase Ur Negative LEU/UL (Negative); Nitrate Urine Negative (Negative); Non Pathogenic Casts 0-2; Protein Urine Negative (Negative); RBC Urine 21-50 /hpf (0-2); Specific Grav Ur 1.007 (1.001-1.035); Squamous Epithelial Cell Urine None seen /hpf (Few); Urobilinogen Urine 0.2 mg/dL (<2.0); WBC Urine 0-5 /hpf
--- NOTE | 2023-04-18 21:57 | ED.GENADULT ---
HPI - General Adult General Chief complaint: Seizure Stated complaint: seizure Time Seen by Provider: 04/18/23 20:54 History of Present Illness HPI narrative: Patient is a 23-year-old female who presents the emergency department with chief complaint of seizure-like activity. Patient reports she has history of nonepileptiform seizures and her primary doctor started her on hydroxyzine. The patient states that today she had an episode of one of her seizures and decided to come to the emergency department. The patient denies suicidal or homicidal ideation reports no increase in her stress. The patient reports she has a video EEG scheduled for later this month Related Data Allergies Allergy/AdvReac Type Severity Reaction Status Date / Time diphenhydramine Allergy Other Verified 04/18/23 20:52 [From Benadryl] ibuprofen Allergy Vomiting Verified 04/18/23 20:52 Review of Systems Review of Systems: A 10 system review of systems was completed on the patient and is negative except for what is stated in the HPI. Nursing and ancillary documentation was reviewed. PMFSH Past Medical History Medical History Psychiatric pseudoseizure Surgical History Surgical History No pertinent past surgical history Social History Social History Smoking status: Never smoker Alcohol intake: never Substance use: never Living arrangements: dorm student housing Occupation/Education: student Gender identity (if verbalized by the patient): Female Exam Narrative: GENERAL: Well-appearing, well-nourished, and in no acute distress. HEAD: Normocephalic, atraumatic. EYES: PERRLA and EOMI. ENT: Nares clear, no rhinorrhea or epistaxis. Mucous membranes moist. NECK: Supple. CHEST: Clear to auscultation. No respiratory distress. HEART: Regular rate and rhythm. No murmur heard. Normal peripheral pulses. ABDOMEN: Soft, nontender, nondistended, normal active bowel sounds. EXTREMITIES: Normal range of motion. No edema. SKIN: Warm, dry, no rash. NEURO: No focal deficits. Alert and oriented x3. GCS 15 PSYCH: Normal mood and affect. Course Vital Signs Vital signs: Vital Signs Temperature 36.8 C 04/18/23 20:42 Pulse Rate 96 04/18/23 20:42 Respiratory Rate 19 04/18/23 20:42 Blood Pressure 132/92 H 04/18/23 20:42 Pulse Oximetry 99 04/18/23 20:42 Oxygen Delivery Room Air 04/18/23 20:42 Temperature 36.8 C 04/18/23 20:42 Pulse Rate 96 04/18/23 20:42 Respiratory Rate 19 04/18/23 20:42 Blood Pressure 132/92 H 04/18/23 20:42 Pulse Oximetry 99 04/18/23 20:48 Oxygen Delivery Room Air 04/18/23 20:48 Medical Decision Making Vital Signs Vital Signs: Vital Signs Temperature 36.8 C 04/18/23 20:42 Pulse Rate 96 04/18/23 20:42 Respiratory Rate 19 04/18/23 20:42 Blood Pressure 132/92 H 04/18/23 20:42 Pulse Oximetry 99 04/18/23 20:42 Oxygen Delivery Room Air 04/18/23 20:42 Temperature 36.8 C 04/18/23 20:42 Pulse Rate 96 04/18/23 20:42 Respiratory Rate 04/18/23 20:42 Blood Pressure 132/92 H 04/18/23 20:42 Pulse Oximetry 99 04/18/23 20:48 Oxygen Delivery Room Air 04/18/23 20:48 Lab Data 04/18/23 21:07 04/18/23 21:07 Labs: Lab Results 04/18/23 04/18/23 Range/Units 21:07 21:40 WBC 6.6 (4.5-10.0) K/mm3 RBC 4.00 L (4.2-5.4) M/mm3 Hgb 12.4 (12.0-15.0) g/dL Hct 36.7 L (37.0-47.0) % MCV 91.8 (80-100) fl MCH 31.0 (26-34) pg MCHC 33.8 (32-36) g/dl RDW 12.1 (11.5-14.5) % Plt Count 264 (150-375) k/mm3 MPV 10.0 (7.4-10.4) fl Immature Gran % (Auto) 0.2 (0-0.5) % Neut % (Auto) 58.5 (45.5-73.1) % Lymph % (Auto) 33.7 (18.3-44.2) % [place] % (Auto) 5.6 (2.6-8.5) % Eos % (A
[2023-04-18 22:03] LABS: Add Urine Microscopic? YES; Amphetamine Screen Urine Negative (Negative); Barbiturate Screen Urine Negative (Negative); Benzodiazepines Screen Urine Negative (Negative); Cannabinoid Screen Urine Negative (Negative); Cocaine Screen Urine Negative (Negative); Methadone Screen Urine Negative (Negative); Opiate Screen Urine Negative (Negative); Phencyclidine Screen Urine Negative (Negative)
[2023-04-18 22:15] VITALS: BP 121/83; PULSE 84; RESP 20; O2SAT 100
[2023-04-19 00:10] LABS: Reflex Lactic Acid Yes or No Add Lactic
== END 2023-04-18 22:29 | disposition home or self-care (01) ==
PROVIDERS: Emergency Provider Emergency Medicine
DX: R56.9 Unspecified convulsions (principal)
CPT/HCPCS: 36415; 80053; 80307; 81001; 81025; 83605; 83735; 85025; 96360; 99283; J7030

== ENCOUNTER 2023-04-24 13:00 | Emergency (ER) | payer OTHER, SELFPAY ==
--- NOTE | ~2023-04-24 | XR_ITS ---
XR chest 2V DATE: 04/24/2023 13:45 INDICATION: Cough TECHNIQUE: PA and lateral views COMPARISON: None FINDINGS: Normal heart size. No hilar or mediastinal enlargement. No pulmonary infiltrate or consolid ation, pleural effusion or pulmonary vascular congestion or pneumothorax. Mild levoscoliosis of the thoracic spine. Status post cholecystectomy. IMPRESSION: No active cardiopulmonary disease Reviewed, dictated and finalized at location [facility].
[2023-04-24 13:02] VITALS: BP 134/77; PULSE 93; RESP 18; TEMP 36.9; O2SAT 99
--- NOTE | 2023-04-24 13:05 | ED.SEIZURE ---
HPI - Seizure General Chief Complaint: Seizure Stated Complaint: seizure History of Present Illness HPI Narrative: Patient is a 23-year-old female with history of seizure versus pseudo-seizure, left-sided stroke last year noted. On a MRI here with seizure-like activity. Patient states that she was at work and began feeling dizzy. She then had staff helped lower her to the ground. She was told that she had 7 episodes of muscle tensing over 15 minutes. She does note that in between some of them she woke up and answered questions appropriately. She notes these are is very similar to prior episodes of seizure-like activity. She is been experiencing them almost every other day, usually occurring in episodes of 2-3 per episode. Bystanders are familiar with her seizure-like activity noted this was similar in nature today. They were concerned because she had more episodes than usual today and seemed warm to touch so she was brought in for evaluation. No bowel or bladder incontinence, no tongue biting. She has had neurologic workups in the past, thought could repeat her seizures to pseudoseizures, is not currently on any antiepileptics. She is only currently on hydroxyzine. She has been having some increased frequency of this seizure-like activity however so she is currently set up for a 48 hour EEG in 3 days up in [place] with her primary care doctor is. Her primary care doctor is currently referring her to a neurologist at [facility]. Of note, she has been having a cough, and congestion for the last couple of days. No temperature taken at home. Unknown sick contacts. No urinary symptoms. Related Data Allergies Allergy/AdvReac Type Severity Reaction Status Date / Time diphenhydramine Allergy Dizziness Verified 04/24/23 13:15 [From Benadryl] ibuprofen Allergy Unknown Verified 04/24/23 13:15 Review of Systems Review of Systems: CONSTITUTIONAL: Subjective fever, no chills, or sweats. EYES: Denies visual changes, redness, or discharge. ENT: rhinorrhea, congestion, no sore throat or otalgia. CARDIOVASCULAR: Denies chest pain, palpitations, or edema. RESPIRATORY: cough, no dyspnea. GASTROINTESTINAL: Denies abdominal pain, nausea, vomiting, or diarrhea. GENITOURINARY: Denies dysuria or hematuria. SKIN: Denies rash or itching. MUSCULOSKELETAL: Denies back pain, joint pain, or myalgia. NEUROLOGIC: Seizure like activity, Denies headache, numbness, or weakness. Exam Narrative: GENERAL: Well-appearing, well-nourished, and in no acute distress. HEAD: Normocephalic, atraumatic. EYES: PERRLA and EOMI. ENT: Nares clear. Mucous membranes moist. NECK: Supple. CHEST: Clear to auscultation. No respiratory distress. HEART: Regular rate and rhythm. Normal peripheral pulses. ABDOMEN: Soft, nontender, nondistended. EXTREMITIES: Normal range of motion. No edema. SKIN: Warm, dry, no rash. NEURO: No focal deficits. Alert and oriented x3. PSYCH: Normal mood and affect. Course Course Emergency Course: Chart review performed. No prior notes in our system. Patient seen and evaluated. In no acute distress. Here with breakthrough seizure vs pseudoseizure. Having seizure like activity every other day, has a 48 hour EEG scheduled in 3 days in [place]. Will do workup for electrolyte abnormalities or infection given URI symptoms. Patient has no meningeal signs, no concern for meningitis. No trauma, seizure activity similar to prior, no head imaging required at this time. Believe it would be most beneficial for the patient to get her scheduled 48 hour EEG given recurring symptoms every other day. Lab work reviewed. Patient unable to provide urine sample. CBC within normal limits, no leukocytosis, chemistry panel within normal limits. serum negative. COVID negative. Will reevauate. Patient re-evaluated, in no acute distress, no seizure-like activity witnessed here in the department. The results of pertinent diagnostic studi
[2023-04-24 13:07] VITALS: PULSE 97; O2SAT 98
--- NOTE | 2023-04-24 13:15 | ECG_ITS ---
Measurements Intervals [place] Rate: 86 P: 32 MN: 164 QRS: -18 QRSD: 112 T: 0 QT: 368 QTc: 443 Interpretive Statements SINUS RHYTHM S1-S2-S3 PATTERN, CONSISTENT WITH PULMONARY DISEASE, RVH, OR NORMAL VARIANT PATTERN CONSISTENT WITH PULMONARY DISEASE MODERATE INTRAVENTRICULAR CONDUCTION DELAY [110+ ms QRS DURATION] NO PREVIOUS ECG AVAILABLE FOR COMPARISON Electronically Signed On 04-25-2023 11:11:22 CDT by Ryne Alvarado MD
[2023-04-24 13:16] VITALS: BP 138/80; PULSE 90; RESP 18; O2SAT 99
[2023-04-24 14:07] LABS: Basophils Percent Auto 0.3 % (0.2-1.2); Eosinophils Absolute Auto 0.1 K/mm3 (0-0.3); Eosinophils Percent Auto 1.4 % (0-4.4); Hematocrit 40.4 % (37.0-47.0); Hemoglobin 13.8 g/dL (12.0-15.0); Immature Granulocyte Absolute 0.01 K/mm3 (0.00-0.031); Immature Granulocyte Percent A 0.2 % (0-0.5); Lymphocytes Absolute Auto 1.92 K/mm3 (0.9-3.2); Lymphocytes Percent Auto 30.4 % (18.3-44.2); Mean Corpuscular HGB Conc 34.2 g/dl (32-36); Mean Corpuscular Hemoglobin 30.6 pg (26-34); Mean Corpuscular Volume 89.6 fl (80-100); Mean Platelet Volume 9.4 fl (7.4-10.4); Monocytes Absolute Auto 0.5 K/mm3 (0.1-0.6); Monocytes Percent Auto 7.4 % (2.6-8.5); Neutrophils Absolute Auto 3.8 K/mm3 (1.3-6.7); Neutrophils Percent Auto 60.3 % (45.5-73.1); Platelet Count Result 289 k/mm3 (150-375); Red Blood Count 4.51 M/mm3 (4.2-5.4); White Blood Count 6.3 K/mm3 (4.5-10.0)
[2023-04-24 14:19] LABS: Alanine Aminotransferase 25 U/L (6-35); Albumin Level 4.2 g/dL (3.5-5.1); Alkaline Phosphatase 82 U/L (38-126); Anion Gap 5 mmol/L (8-16); Aspartate Amino Transferase 25 U/L (14-36); Bilirubin,Total 0.4 mg/dL (0.2-1.3); Blood Urea Nitrogen 14 mg/dL (7-17); Calcium 9.1 mg/dL (8.4-10.2); Carbon Dioxide 28 mmol/L (22-30); Chloride 104 mmol/L (98-107); Estimated CRCL calculation 102 ml/min; Estimated Glomerular Filt Rate > 60; Glucose 94 mg/dL (65-110); Magnesium 1.8 mg/dL (1.6-2.3); Potassium 4.2 mmol/L (3.4-5.0); Sodium 137 mmol/L (137-145)
[2023-04-24 14:42] LABS: SARS-CoV-2 RNA PCR Negative (Negative)
--- NOTE | 2023-04-24 14:47 | PC.NURSE ---
Pt said is not able to urinate at this time.
[2023-04-24 14:50] VITALS: BP 133/82; PULSE 80; RESP 18; O2SAT 98
[2023-04-24 14:52] LABS: Glucose Point of Care 110 mg/dl (65-105)
[2023-04-24 15:20] LABS: Serum Qual hCG Negative
[2023-04-24 15:21] LABS: SPREG INTERNAL CONTROL Positive
[2023-04-24 16:25] VITALS: BP 141/92; PULSE 96; RESP 20; O2SAT 100
== END 2023-04-24 16:41 | disposition home or self-care (01) ==
PROVIDERS: Emergency Provider Student in an Organized Health Care Education/Training Program
DX: R56.9 Unspecified convulsions (principal); Z20.822 Contact with and (suspected) exposure to COVID-19
CPT/HCPCS: 36415; 71046; 80053; 82948; 83735; 84703; 85025; 87635; 93005; 99283

== ENCOUNTER 2023-05-18 12:18 | Emergency (ER) | payer OTHER, SELFPAY ==
[2023-05-18 12:23] VITALS: BP 118/76; PULSE 79; RESP 18; TEMP 36.5; O2SAT 97
--- NOTE | 2023-05-18 12:29 | ECG_ITS ---
Measurements Intervals [place] Rate: 80 P: 27 [place]: 171 QRS: -5 QRSD: 117 T: 6 QT: 367 QTc: 426 Interpretive Statements SINUS RHYTHM INTRAVENTRICULAR CONDUCTION DELAY BORDERLINE T WAVE ABNORMALITY- ANT/INF LEADS BORDERLINE ECG COMPARED TO ECG 02/28/2023 14:30:32 SINUS RHYTHM NOW PRESENT INTRAVENTRICULAR CONDUCTION DELAY NOW PRESENT Electronically Signed On 05-18-2023 13:00:53 CDT by Don Leo D.O.
[2023-05-18 13:18] LABS: Appearance Urine Clear (Clear); Bacteria Urine Rare /hpf; Bilirubin Urine Negative (Negative); Color Urine Yellow (Yellow); Glucose Urine UA Negative (Negative); Ketones Urine Negative (Negative); Leukocyte Esterase Ur Negative LEU/UL (Negative); Nitrate Urine Negative (Negative); Non Pathogenic Casts 0-2; Protein Urine Negative (Negative); RBC Urine 0-2 /hpf (0-2); Specific Grav Ur 1.006 (1.001-1.035); Squamous Epithelial Cell Urine Few /hpf (Few); Urobilinogen Urine 0.2 mg/dL (<2.0); WBC Urine 0-5 /hpf
[2023-05-18 13:23] LABS: Add Urine Microscopic? YES; Basophils Percent Auto 0.3 % (0.2-1.2); Eosinophils Absolute Auto 0.1 K/mm3 (0-0.3); Eosinophils Percent Auto 0.9 % (0-4.4); Hematocrit 39.9 % (37.0-47.0); Hemoglobin 13.8 g/dL (12.0-15.0); Immature Granulocyte Absolute 0.02 K/mm3 (0.00-0.031); Immature Granulocyte Percent A 0.3 % (0-0.5); Lymphocytes Absolute Auto 1.63 K/mm3 (0.9-3.2); Lymphocytes Percent Auto 28.1 % (18.3-44.2); Mean Corpuscular HGB Conc 34.6 g/dl (32-36); Mean Corpuscular Hemoglobin 30.4 pg (26-34); Mean Corpuscular Volume 87.9 fl (80-100); Mean Platelet Volume 9.6 fl (7.4-10.4); Monocytes Absolute Auto 0.3 K/mm3 (0.1-0.6); Monocytes Percent Auto 5.9 % (2.6-8.5); Neutrophils Absolute Auto 3.8 K/mm3 (1.3-6.7); Neutrophils Percent Auto 64.5 % (45.5-73.1); Platelet Count Result 279 k/mm3 (150-375); Red Blood Count 4.54 M/mm3 (4.2-5.4); Red Cell Distribution Width 12.3 % (11.5-14.5); White Blood Count 5.8 K/mm3 (4.5-10.0)
[2023-05-18 13:25] LABS: Glucose Point of Care 91 mg/dl (65-105)
[2023-05-18 13:34] LABS: Anion Gap 8 mmol/L (8-16); Blood Urea Nitrogen 13 mg/dL (7-17); Calcium 9.2 mg/dL (8.4-10.2); Carbon Dioxide 25 mmol/L (22-30); Chloride 105 mmol/L (98-107); Estimated CRCL calculation 115 ml/min; Estimated Glomerular Filt Rate > 60; Glucose 92 mg/dL (65-110); Sodium 138 mmol/L (137-145)
--- NOTE | 2023-05-18 13:47 | ED.GENADULT ---
HPI - General Adult General Chief complaint: Seizure Stated complaint: seizure Time Seen by Provider: 05/18/23 13:02 History of Present Illness HPI narrative: Marilu Dodd is a 23 y/o female who presents via EMS from school. She states that she has a hx of seizures since she was 18 and she has been back and forth with her PCP and psychiatrist to come up if they area epileptic or pseudoseizures. She states currently her PCP has ordered her to take xanax to prevent the seizures as needed. She has been on Keppra before but that was when she was 18 and refuses to take it at this time. She states that she was lined up to get an EEG but then it got cancelled because she did not have a neurologist. She states she has an appointment with a neurologist in 10 days and is going to get the EEG completed then She states that today she was sitting in class and stated to shake, she denies having any trauma with the seizure and currently feels back to herself without any complaints She wishes to be d/c home and she does not want any medications, she has her Xanax at home, she does not drive and keeps herself on seizure precautions until cleared by the neurologist that she is going to see. Related Data Allergies Allergy/AdvReac Type Severity Reaction Status Date / Time diphenhydramine Allergy Other Verified 04/27/23 14:54 [From Benadryl] ibuprofen Allergy Vomiting Verified 04/27/23 14:54 Review of Systems Review of Systems: CONSTITUTIONAL: Denies fever, chills, or sweats. EYES: Denies visual changes, redness, or discharge. ENT: Denies rhinorrhea, congestion, sore throat, or otalgia. CARDIOVASCULAR: Denies chest pain, palpitations, or edema. RESPIRATORY: Denies cough or dyspnea. GASTROINTESTINAL: Denies abdominal pain, nausea, vomiting, or diarrhea. GENITOURINARY: Denies dysuria or hematuria. SKIN: Denies rash or itching. MUSCULOSKELETAL: Denies back pain, joint pain, or myalgia. NEUROLOGIC: Denies headache, numbness, dizziness, or weakness. PSYCHIATRIC: Denies anxiety or depression. [facility] Past Medical History Medical History Psychiatric pseudoseizure Surgical History Surgical History No pertinent past surgical history Social History Social History Smoking status: Never smoker Alcohol intake: never Substance use: never Living arrangements: dorm student housing Occupation/Education: student Gender identity (if verbalized by the patient): Female Exam Narrative: GENERAL: Well-appearing, well-nourished, and in no acute distress. HEAD: Normocephalic, atraumatic. EYES: PERRLA and EOMI. ENT: Nares clear, no rhinorrhea or epistaxis. Mucous membranes moist. Oropharynx without tonsillar hypertrophy exudate or other lesions. NECK: Supple. No adenopathy or masses. No carotid bruits or JVD CHEST: Clear to auscultation. No respiratory distress. No wheezes rales or rhonchi HEART: Regular rate and rhythm. No murmur heard. Normal peripheral pulses. ABDOMEN: Soft, nontender, nondistended, normal active bowel sounds. EXTREMITIES: Normal range of motion. No edema. SKIN: Warm, dry, no rash. NEURO: No focal deficits. Alert and oriented x3. PSYCH: Normal mood and affect. Course Vital Signs Vital signs: Vital Signs Temperature 36.5 C 05/18/23 12:23 Pulse Rate 79 05/18/23 12:23 Respiratory Rate 18 05/18/23 12:23 Blood Pressure 118/76 05/18/23 12:23 Pulse Oximetry 97 05/18/23 12:23 Oxygen Delivery Room Air 05/18/23 12:23 Temperature 36.5 C 05/18/23 12:23 Pulse Rate 79 05/18/23 12:23 Respiratory Rate 18 05/18/23 12:23 Blood Pressure 118/76 05/18/23 12:23 Pulse Oximetry 97 05/18/23 12:23 Oxygen Delivery Room Air 05/18/23 12:30 vitals reveiewed by me. Medical Decision Making MDM Narrative Medical decision [email or web address]
[2023-05-18 13:53] VITALS: BP 120/74; PULSE 78; RESP 17; O2SAT 99
== END 2023-05-18 14:15 | disposition home or self-care (01) ==
PROVIDERS: Emergency Provider Nurse Practitioner Family; PCP Physician Assistant
DX: G40.909 Epilepsy, unspecified, not intractable, without status epilepticus (principal)
CPT/HCPCS: 36415; 80048; 81001; 81025; 82948; 85025; 93005; 99283

== ENCOUNTER 2023-06-10 13:35 | Emergency (ER) | payer MEDICAID, SELFPAY ==
[2023-06-10 13:27] VITALS: BP 136/90; PULSE 93; RESP 22; TEMP 36.9; O2SAT 97
--- NOTE | 2023-06-10 14:00 | ECG_ITS ---
Measurements Intervals [place] Rate: 88 P: 28 NM: 175 QRS: -14 QRSD: 117 T: 16 QT: 351 QTc: 425 Interpretive Statements SINUS RHYTHM MODERATE INTRAVENTRICULAR CONDUCTION DELAY [110+ ms QRS DURATION] BORDERLINE ECG COMPARED TO ECG 05/18/2023 12:35:48 NO SIGNIFICANT CHANGES Electronically Signed On 06-11-2023 7:22:56 CDT by Misha Urena M.D.
[2023-06-10 14:01] VITALS: BP 119/79; PULSE 91
[2023-06-10 14:02] VITALS: BP 117/83; PULSE 93
[2023-06-10 14:04] VITALS: BP 113/79; PULSE 90
[2023-06-10 14:09] VITALS: PULSE 99
--- NOTE | 2023-06-10 14:33 | ED.SEIZURE ---
HPI - Seizure General Chief Complaint: Seizure Stated Complaint: seizure Time Seen by Provider: 06/10/23 14:33 History of Present Illness HPI Narrative: Patient is a 23 year old female who presents to the ED today due to a witnessed seizure vs pseudoseizures. Patient states that she does have a history of pseudoseizures and does see a neurologist. She has had previous EEG's and is due for another one as the first one was normal and she continues to have these seizure like activity. Today, seizure occurred while she was in school and she was brought to us for further evaluation. She is currently denying any symptoms and requesting to be discharged stating that she will follow up with her neurologist as an outpatient. She denies falling or hitting her head stating that she was sitting in her chair when the seizure occurred. She denies any chest pain, SOB, N/V/D, headache, dizziness, lightheadedness, focal weakness, numbness and or tingling. There are no other modifying, alleviating, or precipitating factors at this time. Seizure History: Yes Related Data Allergies Allergy/AdvReac Type Severity Reaction Status Date / Time diphenhydramine Allergy Other Verified 04/27/23 14:54 [From Benadryl] ibuprofen Allergy Vomiting Verified 04/27/23 14:54 Review of Systems Review of Systems: All systems are reviewed and are negative unless stated otherwise in the HPI. [facility] Past Medical History Medical History Psychiatric pseudoseizure Surgical History Surgical History No pertinent past surgical history Social History Social History Smoking status: Never smoker Alcohol intake: never Substance use: never Living arrangements: dorm student housing Occupation/Education: student Gender identity (if verbalized by the patient): Female Exam Narrative: General: Alert, awake, afebrile, in no acute distress. HEENT: PERRL, no rhinorrhea, no post nasal drip, oropharynx clear. Neck: Trachea midline, no JVD, no lymphadenopathy. Cardiovascular: Regular rate and rhythm, no murmurs, rubs or gallops, no peripheral edema. Respiratory: Clear to auscultation bilaterally, no tachypnea, no wheezing, no rhonchi, no rubs, no respiratory distress. Abdomen: Soft, nontender, nondistended, no rebound, no guarding, no peritoneal signs. Musculoskeletal: No joint swelling or deformity, normal muscle tone. Skin: No rashes or petechia, no signs of infection. Psychiatric: Alert and oriented, normal behavior and judgment for situation. Neurological: Alert and oriented to person, place, and time. Follows all commands. No focal deficits, moving all 4 extremities spontaneously, speech is clear and fluent, gait is normal. Course Vital Signs Vital signs: Vital Signs Temperature 98.4 F 06/10/23 13:27 Pulse Rate 93 06/10/23 13:27 Respiratory Rate 22 H 06/10/23 13:27 Blood Pressure 136/90 06/10/23 13:27 Pulse Oximetry 97 06/10/23 13:27 Oxygen Delivery Room Air 06/10/23 13:27 Temperature 98.4 F 06/10/23 13:27 Pulse Rate 99 06/10/23 14:09 Respiratory Rate 22 H 06/10/23 13:27 Blood Pressure 113/79 06/10/23 14:04 Pulse Oximetry 97 06/10/23 13:27 Oxygen Delivery Room Air 06/10/23 13:27 MDM - Seizure MDM Narrative Medical decision making narrative: The patient was evaluated by myself in the emergency department. History is obtained from the patient who is an independent historian and physical exam was performed. External medical records were reviewed at this time. IV was established and pertinent tests were ordered. EKG was obtained which revealed SR at a rate of 88bpm. No ST changes, T wave inversions or evidence of acute ischemia. EKG was independently interpreted by me and is currently pending official cardiology read. The patient
== END 2023-06-10 14:47 | disposition left against medical advice (07) ==
LOC: ANHED 14:40
PROVIDERS: Emergency Provider Emergency Medicine; PCP Physician Assistant
DX: R56.9 Unspecified convulsions (principal); I45.9 Conduction disorder, unspecified
CPT/HCPCS: 93005; 99283

== ENCOUNTER 2023-08-03 12:28 | Emergency (ER) | payer OTHER, SELFPAY ==
[2023-08-03 12:25] VITALS: BP 125/69; PULSE 83; RESP 20; TEMP 36.8; O2SAT 98
--- NOTE | 2023-08-03 12:33 | ECG_ITS ---
Measurements Intervals [place] Rate: 82 P: 39 [place]: 181 QRS: -6 QRSD: 107 T: 3 QT: 373 QTc: 437 Interpretive Statements SINUS RHYTHM LOW QRS VOLTAGE IN PRECORDIAL LEADS [QRS DEFLECTION < 1.0 mV IN CHEST LEADS] COMPARED TO ECG 06/10/2023 13:32:01 NO SIGNIFICANT CHANGES Electronically Signed On 08-03-2023 13:37:39 [employer]ERGY EFFICIENCY FINANCE MANAGER by Peg Moore M.D.
[2023-08-03 12:35] VITALS: PULSE 92; O2SAT 99
--- NOTE | 2023-08-03 13:07 | ED.SEIZURE ---
HPI - Seizure General Chief Complaint: Seizure Stated Complaint: seizure, low blood glucose Source: patient Limitations: no limitations History of Present Illness HPI Narrative: This is a 23 yo female with PMH non epileptiform seizures who presents after a report of 4 seizures. States she is nor currently on antiseizure medication since they have been deemed pseudoseizures. She denies bowel/bladder incontinence or tongue trauma. Patient denies loss of consciousness during seizures, states she can't see but she can hear what goes on around her. Did not hit head. POC glucose was 56 for EMS. She was given oral glucose and repeat was 76. She has a family history of diabetes but no personal history. Multiple family members on insulin. Last oral intake was coffee, Mountain Dew, and breakfast. Patient notes she was diagnosed with seizures at 18 yo. Had been on an antiepileptic at that time (she believes Keppra) but it was stopped. She notes that she had an EEG 2 weeks ago but has not yet received the results. 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 She sees a neurologist in [place]. Denies any headache currently. Has had decreased sleep. Drinks alcohol on the weekends but otherwise denies drinking in the past few days and no drugs. Seizure History: Yes Related Data Home Medications Medication Instructions Recorded Confirmed No Home Medications 08/03/23 08/03/23 Allergies Allergy/AdvReac Type Severity Reaction Status Date / Time diphenhydramine Allergy Other Verified 08/03/23 12:34 [From Benadryl] ibuprofen Allergy Vomiting Verified 08/03/23 12:34 PMFSH Past Medical History Medical History Psychiatric pseudoseizure Surgical History Surgical History No pertinent past surgical history Social History Social History (Updated 08/06/23 @ 14:23 by Anjana Romero MD) Smoking status: Never smoker Alcohol intake: current Alcohol use details: drinks Lyle on the weekends occasionally Substance use: never Living arrangements: dorm student housing Occupation/Education: student Gender identity (if verbalized by the patient): Female Exam Narrative: GENERAL: Well-appearing, well-nourished, and in no acute distress. HEAD: Normocephalic, atraumatic. EYES: Non injected, non icteric ENT: Nares clear, no rhinorrhea or epistaxis. No tongue trauma. NECK: Supple. CHEST: Clear to auscultation. No respiratory distress. HEART: Regular rate and rhythm. . ABDOMEN: Soft, nondistended. EXTREMITIES: Normal range of motion. No edema. SKIN: Warm, dry, no rash. NEURO: No focal deficits. Alert and oriented x3. No abnormal movements. Sensation intact to gross touch throughout PSYCH: Normal mood and affect. Course Vital Signs Vital signs: Vital Signs Temperature 98.2 F 08/03/23 12:25 Pulse Rate 83 08/03/23 12:25 Respiratory Rate 20 08/03/23 12:25 Blood Pressure 125/69 08/03/23 12:25 Pulse Oximetry 98 08/03/23 12:25 Oxygen Delivery Room Air 08/03/23 12:25 Temperature 98.2 F 08/03/23 12:25 Pulse Rate 78 08/03/23 14:27 Respiratory Rate 17 08/03/23 14:27 Blood Pressure 100/74 08/03/23 14:27 Pulse Oximetry 98 08/03/23 14:27 Oxygen Delivery Room Air 08/03/23 12:35 MDM - Seizure MDM Narrative Medical decision making narrative: Patient has a history of non epileptiform seizures (formerly pseudoseizures). Sees a neurologist and currently awaiting results from an EEG she had performed in the outpatient setting 2 weeks ago. Report of 4 seizures without loss of consciousenss today. Mildly hypoglycemic for EMS on arrival with resolution after oral glucose. Given history, I did obtain a c peptide and insulin level as she has mulutiple family members who are
[2023-08-03 13:26] LABS: Basophils Percent Auto 0.6 % (0.2-1.2); Eosinophils Absolute Auto 0.1 K/mm3 (0-0.3); Hematocrit 39.3 % (37.0-47.0); Hemoglobin 13.3 g/dL (12.0-15.0); Immature Granulocyte Absolute 0.02 K/mm3 (0.00-0.031); Immature Granulocyte Percent A 0.3 % (0-0.5); Lymphocytes Percent Auto 29.1 % (18.3-44.2); Mean Corpuscular HGB Conc 33.8 g/dl (32-36); Mean Corpuscular Volume 88.5 fl (80-100); Mean Platelet Volume 9.7 fl (7.4-10.4); Monocytes Absolute Auto 0.5 K/mm3 (0.1-0.6); Monocytes Percent Auto 7.5 % (2.6-8.5); Neutrophils Percent Auto 60.5 % (45.5-73.1); Platelet Count Result 242 k/mm3 (150-375); Red Blood Count 4.44 M/mm3 (4.2-5.4); Red Cell Distribution Width 12.2 % (11.5-14.5); White Blood Count 6.5 K/mm3 (4.5-10.0)
[2023-08-03 13:38] LABS: Alanine Aminotransferase 22 U/L (6-35); Albumin Level 3.9 g/dL (3.5-5.1); Alkaline Phosphatase 85 U/L (38-126); Anion Gap 6 mmol/L (8-16); Aspartate Amino Transferase 25 U/L (14-36); Bilirubin,Total 0.5 mg/dL (0.2-1.3); Blood Urea Nitrogen 11 mg/dL (7-17); Calcium 8.7 mg/dL (8.4-10.2); Carbon Dioxide 27 mmol/L (22-30); Chloride 105 mmol/L (98-107); Estimated CRCL calculation 94 ml/min; Estimated Glomerular Filt Rate > 60; Glucose 91 mg/dL (65-110); Potassium 3.6 mmol/L (3.4-5.0); Sodium 138 mmol/L (137-145)
[2023-08-03 13:51] LABS: Amphetamine Screen Urine Negative (Negative); Barbiturate Screen Urine Negative (Negative); Benzodiazepines Screen Urine Negative (Negative); Cannabinoid Screen Urine Negative (Negative); Cocaine Screen Urine Negative (Negative); Methadone Screen Urine Negative (Negative); Opiate Screen Urine Negative (Negative); Phencyclidine Screen Urine Negative (Negative)
[2023-08-03 14:27] VITALS: BP 100/74; PULSE 78; RESP 17; O2SAT 98
[2023-08-06 06:05] LABS: C-Peptide 2.64 ng/mL (0.80-3.85)
[2023-08-07 06:40] LABS: Insulin Level Total 9.8 uIU/mL (<=18.4)
== END 2023-08-03 14:28 | disposition home or self-care (01) ==
PROVIDERS: Emergency Provider Student in an Organized Health Care Education/Training Program
DX: R56.9 Unspecified convulsions (principal)
CPT/HCPCS: 36415; 80053; 80307; 81025; 83525; 84681; 85025; 93005; 99284